=== PATIENT | male | born 1970 | race African-American/Black ===

== ENCOUNTER 2018-01-11 19:22 | Emergency (ER) | payer OTHER ==
[~2018-01-11] VITALS: Ht 172.7 cm; Wt 102.5 kg
--- NOTE | 2018-01-11 20:09 | PHYS DOC ---
Past History Past Medical History: Other Past Surgical History: No Surgical History Alcohol Use: Occasionally Drug Use: None Adult General Chief Complaint Chief Complaint: CHEST PAIN [facility] HPI 47-year-old male presents with left-sided chest pain that started last night. The patient said that the pain started as he was finishing on his elliptical. The patient was recently started and aggressive workout regimen in the last couple weeks because he was told he is prediabetic. Patient describes the pain as a muscle tightness feeling. He was able to sleep last night but he woke up and the pain was still there. He had some mild shortness of breath with the pain initially. The patient climb 3 flights of stairs at work today and felt a little short of breath and mildly diaphoretic as he got up the third flight. This didn't seem to make the chest pain a little bit worse, but it subsided quickly. Patient denies history of cardiac problems. He has never had a stress test or cardiac catheter. He denies fever, chills, nausea, vomiting, dysuria, urinary frequency, constipation, diarrhea. Review of Systems Review of Systems Constitutional: Denies fever or chills [] Eyes: Denies change in visual acuity, redness, or eye pain [] HENT: Denies nasal congestion or sore throat [] Respiratory: Denies cough or shortness of breath [] Cardiovascular: No additional information not addressed in HPI [] GI: Denies abdominal pain, nausea, vomiting, bloody stools or diarrhea [] : Denies dysuria or hematuria [] Musculoskeletal: Denies back pain or joint pain [] Integument: Denies rash or skin lesions [] Neurologic: Denies headache, focal weakness or sensory changes [] Endocrine: Denies polyuria or polydipsia [] All other systems were reviewed and found to be within normal limits, except as documented in this note. Allergies Allergies Allergies Coded Allergies Type Severity Reaction Last Updated Verified No Known Drug Allergies 01/11/18 No Physical Exam Physical Exam Constitutional: Well developed, well nourished, no acute distress, non-toxic appearance. [] HENT: Normocephalic, atraumatic, bilateral external ears normal, oropharynx moist, no oral exudates, nose normal. [] Eyes: PERRLA, EOMI, conjunctiva normal, no discharge. [] Neck: Normal range of motion, no tenderness, supple, no stridor. [] Cardiovascular:Heart rate regular rhythm, no murmur [] Lungs & Thorax: Bilateral breath sounds clear to auscultation [] Abdomen: Bowel sounds normal, soft, no tenderness, no masses, no pulsatile masses. [] Skin: Warm, dry, no erythema, no rash. [] Back: No tenderness, no CVA tenderness. [] Extremities: No tenderness, no cyanosis, no clubbing, ROM intact, no edema. [] Neurologic: Alert and oriented X 3, normal motor function, normal sensory function, no focal deficits noted. [] Psychologic: Affect normal, judgement normal, mood normal. [] EKG EKG Sinus rhythm, rate 65, normal axis, 1 mm elevation in lead 2. [] Radiology/Procedures Radiology/Procedures [] Impressions: My interpretation: No acute findings. No pleural effusion, no focal consolidations. No pneumothorax. Course & Med Decision Making Course & Med Decision Making Pertinent Labs and Imaging studies reviewed. (See chart for details) Labs are unremarkable. His troponin is negative. Single troponin being negative is reassuring as is pain started more than 18 hours ago. His EKG is unremarkable. Chest x-rays unremarkable. I believe the patient's discomfort is likely due to his strenuous activity and rapid increase in exercise. I do not have evidence of cardiac involvement. She is stable for discharge at this time. [] Dragon Disclaimer Dragon Disclaimer This electronic medical record was generated, in whole or in part, using a voice recognition dictation system. Departure Departure: Referrals: DIONI MARCANO DO (PCP) ROLAND MARADIAGA DO Jan 11, 2018 20:09
[2018-01-11 20:13] LABS: BASO % 1 % (0-3); EOS # 0.1 x10^3/uL (0.0-0.7); EOS % 1 % (0-3); HEMATOCRIT 41.7 % (39.0-53.0); HEMOGLOBIN 13.8 g/dL (13.0-17.5); LYMPH # 2.5 x10^3/uL (1.0-4.8); LYMPH % 34 % (24-48); MEAN CORPUSCULAR HEMOGLOBIN 28 pg (25-35); MEAN CORPUSCULAR HGB CONC 33 g/dL (31-37); MEAN CORPUSCULAR VOLUME 84 fL (79-100); MONO # 0.5 x10^3/uL (0.0-1.1); MONO % 7 % (0-9); NEUT # 4.2 x10^3uL (1.8-7.7); NEUT % 58 % (31-73); PLATELET COUNT 204 x10^3/uL (140-400); RED BLOOD COUNT 4.97 x10^6/uL (4.30-5.70); RED CELL DISTRIBUTION WIDTH 13.8 % (11.5-14.5); WHITE BLOOD COUNT 7.3 x10^3/uL (4.0-11.0)
[2018-01-11 20:23] LABS: ALBUMIN 3.8 g/dL (3.4-5.0); CALCIUM 9.2 mg/dL (8.5-10.1); CREATININE 1.1 mg/dL (0.7-1.3); GFR 86.4; POTASSIUM 3.6 mmol/L (3.5-5.1); TOTAL BILIRUBIN 0.2 mg/dL (0.2-1.0); TOTAL PROTEIN 7.5 g/dL (6.4-8.2)
[2018-01-11] MEDS ORDERED: ASPIRIN 81 MG TAB.CHEW PO ONE (20:30)
[2018-01-11 21:35] VITALS: BP 128/76
--- NOTE | 2018-01-11 22:40 | RAD ---
CHEST PA LATERAL dated 01/11/2018 7:42 PM. Comparison: None. Clinical Indication: Chest pain. Findings: PA and lateral views of the chest were obtained. Heart and mediastinal contours within normal limits. Lungs are clear without focal consolidation. Vascular interstitium within normal limits. No pleural effusion or pneumothorax. Impression: No acute radiographic abnormality. Electronically signed by: Aidan Perez MD (01/11/2018 10:36 PM) [id number]
--- NOTE | 2018-01-12 06:35 | EKG ---
[address] [address] Test Date: 2018-01-11 Test Time: 19:47:04 Pat Name: AMIRA AUGUST Department: Room: Gender: M General Machinist: : 1970 Requested By: ROLAND MARADIAGA Order Number: [id number] Reading MD: Measurements Intervals [place] Rate: 65 P: 36 AK: 170 QRS: 45 QRSD: 84 T: 46 QT: 350 QTc: 368 Interpretive Statements SINUS RHYTHM OTHERWISE NORMAL ECG RI6.01 Unconfirmed report No previous ECG available for comparison
== END 2018-01-11 21:36 | disposition home or self-care (01) ==
LOC: ER 19:22
DX: R07.89 Other chest pain (principal)
CPT/HCPCS: 36415; 71046; 80053; 84484; 85025; 93005; 99285-25

== ENCOUNTER 2020-11-10 17:31 | Emergency (ER) | payer OTHER ==
[~2020-11-10] VITALS: Ht 172.7 cm; Wt 103.4 kg
[2020-11-10 17:48] VITALS: BP 130/76
[2020-11-10] MEDS ORDERED: LIDO:MAALOX:BENADRYL 1:1:1 180 ML BOTTLE. PO PRN ×2 (18:30)
--- NOTE | 2020-11-10 18:50 | PHYS DOC ---
Past History Past Medical History: Arthritis, Other Additional Past Medical Histor: Seasonal allergies, sleep apnea (KELLIE CARR APRN) Past Surgical History: Other Additional Past Surgical Histo: Prostate CA, TURP, lasik, hernia repair, wisdom teeth out (KELLIE CARR APRN) Alcohol Use: None Drug Use: None (KELLIE CARR APRN) Adult General Chief Complaint Chief Complaint: TONGUE SWELLING/INJURY HPI HPI Patient is a 50-year-old male presents emergency department complaining of noticing a sore on the tip of his tongue this past Sunday. Patient states since then other sores have showed up on the left side of his tongue, patient noticed some discomfort to his lips. Patient reports these sores as being very painful. Patient states he was recently diagnosed with vertigo and was started on meclizine however has not picked up the medication at the pharmacy yet because his [facility] pharmacy was closed today. Patient denies any recent fever or chills, denies any recent illnesses. Denies anyone else living in his home with the same symptoms as he. The patient denies any other physical complaints or physical concerns. The patient reports his immunizations are up-to-date. The patient denies any allergies to medications. Patient reports taking tadalafil 5 mg as needed, Motrin 400 mg as needed, solifenacin 10 mg, [id number] fish oil, multivitamin, and vitamin D3. Patient reports his primary care physician is at the [facility]. Patient denies any recent travel. (KELLIE CARR APRN) Review of Systems Review of Systems 14 body systems of review of systems have been reviewed. See HPI for pertinent positives and negative responses, otherwise all other systems are negative, nonpertinent or noncontributory. (KELLIE CARR APRN) Current Medications Current Medications Current Medications Medications (Trade) Dose Ordered Sig/Joyce Start Time Stop Time Status Last Admin Dose Admin Multi-Ingredient Mouthwash/Gargle (Magic Mouthwash) 10 ml PRN QID PRN 11/10/20 18:30 (KELLIE CARR APRN) Allergies Allergies Allergies Coded Allergies Type Severity Reaction Last Updated Verified No Known Drug Allergies 11/10/20 No (KELLIE CARR APRN) Physical Exam Physical Exam Constitutional: Well developed, well nourished, no acute distress, non-toxic appearance. 50-year-old male in no apparent distress. HENT: Normocephalic, atraumatic, bilateral external ears normal, oropharynx moist, no oral exudates, nose normal. Oral mucosa moist, pink, no lesions of the oral mucosa appreciated, however there is a 1 mm lesion to the tip of the tongue, 2 mm lesion to the left lateral side of tongue, no weeping appreciated, clearly demarcated borders, central necrotic ulcer surrounded by an erythematous halo. No bleeding or drainage appreciated. There is no deep tissue infectious process of the oropharynx, no laryngeal edema, patient speaking in normal voice tones. No drooling, no trismus appreciated. Bilateral TMs within normal limits. Eyes: conjunctiva normal, no discharge. Neck: Normal range of motion. Cardiovascular: No cyanosis appreciated, distal cap refill less than 2 seconds. Lungs & Thorax: Patient is in no respiratory distress. No audible adventitious lung sounds appreciated. Skin: Warm, dry, no erythema, no rash. Back: No tenderness. Extremities: No tenderness, no cyanosis, no clubbing, ROM intact, no edema. Neurologic: Alert and oriented X 3, normal motor function, normal sensory function, no focal deficits noted. Psychologic: Affect normal, judgement normal, mood normal. (KELLIE CARR APRN) Current Patient Data Vital Signs Vital Signs Date Time Temp Pulse Resp B/P (MAP) Pulse Ox O2 Delivery O2 Flow Rate FiO2 11/10/20 17:48 97.9 64 14 130/76 (94) 99 (KELLIE CARR APRN) EKG EKG [] (KELLIE CARR APRN) Radiology/Procedures Radiology/Procedures [] (KELLIE CARR APRN) Heart Score C/O Chest Pain: No Risk Factors: Risk Factors: DM, Current or recent (<one month) smoker, HTN, HLP, family history of CAD, obesity. Risk Scores: Risk Factors: DM, Current or recent (<one month) smoker, HTN, HLP, family history of CAD, obesity. (KELLIE CARR APRN) Course & Med Decision Making Course & Med Decision Making Pertinent Labs and Imaging studies reviewed. (See chart for details) 50-year-old male, vital signs reviewed, presents emergency department complaining of sores on his tongue that started this past Sunday. Physical examination consistent with aphthous stomatitis, patient did not complain of any recent illnesses however patient did have an onset of vertigo which he is currently being treated with meclizine p.o., patient states his vertigo symptoms have seemed to resolve. There was no loss of sensation to the face or tongue, no loss of movement to the face or tongue. There may be a viral component to this, however with no history of HIV or other viral illnesses, will treat with Magic mouthwash swish and spit 2 to 3 teaspoons every 4 to 6 hours as needed for tongue pain. Will have patient follow-up with primary care for ongoing tongue pain problems. Patient gave verbal understanding of discharge home instructions, follow-up with primary care for ongoing tongue pain, return to ER precautions or concerns, patient was discharged home without incident. (KELLIE CARR APRN) Dragon Disclaimer Dragon Disclaimer This electronic medical record was generated, in whole or in part, using a voice recognition dictation system. (KELLIE CARR APRN) Attending Co-Sign The patient was seen and interviewed as well as examined at the bedside. The chart was reviewed. The case was discussed. Agree with the plan of care. (ROLAND MARADIAGA DO) Departure Departure: Impression: Primary Impression: Aphthous stomatitis Disposition: 01 HOME / SELF CARE / HOMELESS Condition: GOOD Referrals: NEHA THOMAS DO (PCP) Patient Instructions: Stomatitis Additional Instructions: You were diagnosed with aphthous stomatitis of the tongue. These small painful lesions can last up to a month. I have prescribed for you a medication called Magic mouthwash which is equal parts of liquid Benadryl, Maalox, and viscous lidocaine. You will need to swish and spit 2 to 3 teaspoons every 4-6 hours as needed for tongue pain. I have given you 3 refills. If you feel as if this medication is not working well you may add warm salt water swishes and spit just before using Magic mouthwash. Please follow-up with your primary care physician at the [facility] this week if symptoms are not improving soon, however I do not expect symptoms to be relieved for up to 3 to 4 weeks. Please return to the emergency department for worsening symptoms or other concerns. KELLIE CARR APRN Nov 10, 2020 18:50 ROLAND MARADIAGA DO Nov 11, 2020 04:01
== END 2020-11-10 19:00 | disposition home or self-care (01) ==
LOC: ER 17:31
DX: K12.0 Recurrent oral aphthae (principal); M19.90 Unspecified osteoarthritis, unspecified site
CPT/HCPCS: 99283